=== PATIENT | male | born 1935 | race Caucasian/White ===

== ENCOUNTER → 2016-09-23 | Outpatient (CLI) | payer OTHER, MEDICARE ==
[~2016-09-23] VITALS: Ht 172.7 cm; Wt 54.4 kg
[~2016-09-23] MED LIST: ATORVASTATIN CA40 MG PO; BRIMONIDINE TAR1 BOT OP; CARVEDILOL12.5 MG PO; CARVEDILOL25 MG PO; CIPRO250 M1 PO; COLCHICINE0.6 MG PO; COREG12.5 MG PO; COREG25 MG PO; FLOMAX0.4 MG PO; LISINOPRIL20 MG PO; MELATONIN5 M4 PO; MIRALAX17 GM PO; NORVASC5 MG PO; PANTOPRAZOLE SO40 M1 PO; PLAVIX 75 MG TA75 M1 PO; PRINIVIL20 M1 PO; PROBIOTIC1 EAC1 PO; VANCOCIN 250 M250 M1 PO; XALATAN2.5 ML OPHTHALMIC
--- NOTE | ~2016-09-23 | S ---
[facility] [place] [address] SURGICAL PATH RPT PROCEDURE Name: ADELINA PANG Room #: REG CLI M.R.#: [id number] Admission: 09/23/16 Date of : 39 Discharge: Report #: [id number] Path Case #: [id number] PATHOLOGY REPORT COLLECTION DATE: 09/23/2016 RECEIVED DATE: 09/23/2016 SUBMITTING PHYS: Dr. Santiago Lee OTHER PHYS: Dr. Gabino Lind SPECIMEN(S) RECEIVED: A.Polyp by at 40 cm * * * * * * * * * * * * FINAL DIAGNOSIS: Polyp, at 40 cm, endoscopic biopsy: - Tubular adenoma. - Negative for high grade dysplasia. PATHOLOGIST: Jade Florian M.D. REPORT ELECTRONICALLY SIGNED BY: Jade Florian M.D. DATE/TIME: 09/27/2016 17:39 * * * * * * * * * * * * GROSS PATHOLOGY: Received in formalin labeled "Adelina Pang, polyp biopsy at 40 cm," is a segment of simpson soft tissue measuring 0.5 cm in maximum dimension. The specimen is submitted entirely in cassette A1. (KAH; 09/25/2016) CLINICAL HISTORY: GI bleed, colon polyp, diverticulosis INITIAL CPT CODE(S): A; 73758 Professional services performed by [facility] at [facility] [address] [place] [address] Technical services performed by [facility] at [address] [place] [address], [address], [place] [address]. [facility] [address] [place] [address] SURGICAL PATH RPT PROCEDURE Name: ADELINA PANG Room #: REG CLJamey Diaz#: [id number] Admission: 09/23/16 Date of : 39 Discharge: Report #: [id number] Path Case #: [id number] [place] [address] PHONE: [phone] DIRECTOR: Martinez Gomez M.D. * * * END OF REPORT * * *
--- NOTE | ~2016-09-23 | P ---
[facility] [place] [address] PROCEDURE REPORT Name: ADELINA PANG [facility] [id number] Admission: 09/23/16 Attend Phys: Santiago Lee MD Discharge: Date of : 37 Report #: [id number] THIS REPORT FOR: //name// CC: Gabino Lind MD [facility] Santiago Lee BRIEF HISTORY: The patient is a 81-year-old male who recently had melanotic stools and has not had a previous colonoscopy. PREOPERATIVE DIAGNOSIS: Melena. POSTOPERATIVE DIAGNOSES: 1. Diminutive polyp at 40 cm. 2. Mild sigmoid diverticulosis coli. MEDICATIONS: Deep sedation with propofol per anesthesia. SPECIMEN: Polyp at 40 cm. ESTIMATED BLOOD LOSS: 3 mL. PROCEDURE: Colonoscopy to cecum and terminal ileum with biopsy. FINDINGS: Prior to propofol sedation, procedure of colonoscopy discussed with the patient as well as potential risks, benefits, and complications. He indicates he understands and desires to proceed. With the patient in left lateral decubitus position, digital examination was completed, which revealed no abnormalities. Subsequently, the [employer] video colonoscope was introduced into the rectum, advanced under direct vision to the cecum. Done with minimal difficulty. Cecum was identified by the ileocecal valve and the appendiceal orifice. I was able to advance the scope right to the mouth of the ileocecal valve, but could not cross the ileocecal valve due to looping of the scope. At that point, the scope was slowly withdrawn and careful circumferential views were obtained including retroflexing the scope in the ascending colon. Upon slow withdrawal of the scope, the prep was excellent. The mucosa was within normal limits, normal vascular pattern, normal light reflex. As we withdrew the scope, the prep was noted to be good. The mucosa was within normal limits, normal vascular pattern, normal light reflex. No bleeding lesions were seen during this examination. No abnormalities were noted until the sigmoid colon was reached and at 40 cm, a diminutive polyp was seen and removed by biopsy. The scope was further withdrawn. He was noted have mild diverticular disease without endoscopic evidence of diverticulitis. Scope was withdrawn in the rectum. Upon retroflexion, no abnormalities were seen. Scope was withdrawn. The patient tolerated the procedure well. [address] [address] PROCEDURE REPORT Name: ADELINA PANG Room #: [facility].#: [id number] Admission: 09/23/16 Attend Phys: Santiago Lee MD Discharge: Date of : 37 Report #: [id number] CONDITION OF THE PATIENT UPON DISCHARGE: Following procedure, the patient drowsy, aroused, conversant and will be discharged home when fully ambulatory. INSTRUCTIONS TO THE PATIENT AND FAMILY AT THE TIME OF DISCHARGE: The patient was here several months ago and had inadequate prep. Prep was actually quite good today. We will follow up on the path report. However, at this point in life, the patient is not likely to benefit from continued routine endoscopic evaluation of his colon. As far as the melena, please see upper endoscopy report as he did have an ulcer. At this point in time, I do not see the need for further intervention or further evaluation. I believe this is the patient's first colonoscopy. Withdrawal time from the cecum was 10 minutes. By: 1129 [id number] Santiago Lee MD /nt
--- NOTE | ~2016-09-23 | P ---
[facility] [place] [address] PROCEDURE REPORT Name: ADELINA PANG Room #: REG [facility].#: [id number] Admission: 09/23/16 Attend Phys: Santiago Lee MD Discharge: Date of : 37 Report #: [id number] THIS REPORT FOR: //name// CC: Gabino Lind MD [facility] Santiago Lee OUTPATIENT UPPER ENDOSCOPY REPORT BRIEF HISTORY: The patient is a 81-year-old male who recently had melanotic stools. Several months ago, he had an upper endoscopy, which revealed a large pyloric ulcer. He also had significant esophagitis. He has been on pantoprazole and presents today for repeat evaluation. PREOPERATIVE DIAGNOSIS: Pyloric ulcerative esophagitis. POSTOPERATIVE DIAGNOSES: 1. 97% healed pyloric ulcer. 2. Distal esophagitis, significantly improved. 3. Small hiatus hernia. 4. Schatzki ring. 5. Diffuse gastritis. MEDICATIONS: Deep sedation with propofol per anesthesia. SPECIMEN: None. ESTIMATED BLOOD LOSS: 3 mL. PROCEDURE: EGD and Philippe dilation. FINDINGS: Prior to propofol sedation, procedure of upper endoscopy was discussed with the patient as well as potential risks and its complications. He indicates he understands and desires to proceed. DESCRIPTION OF PROCEDURE: With the patient in left lateral decubitus position, the Ene[employer] video endoscope was inserted in the cervical esophagus under direct vision without difficulty. Examination of this organ through its entire length revealed normal esophageal mucosa in the proximal esophagus. As we advanced the esophagus distally, there was noted to be some exudate material. This is much improved over previous endoscopy where he had fairly extensive distal esophagitis. No deep ulcers were seen. There was some exudate. The intervening mucosa was normal. The scope was advanced further and he was noted to have a moderately tight Schatzki ring. He did report that recently he had some pain with swallowing and felt like something hanging up. I wondered if he had a bolus obstruction of the esophagus. The scope passed through the ring into a small hiatus hernia. The mucosal hernia was normal. Scope was advanced [facility] [address] [place] [address] PROCEDURE REPORT Name: ADELINA PANG Room #: REG RUTHANN Diaz#: [id number] Admission: 09/23/16 Attend Phys: Santiago Lee MD Discharge: Date of : 37 Report #: [id number] in the stomach, which was examined on end view as well as retroflexed views. There was a pattern of antral gastritis. It is noted previous biopsies were negative for H. pylori and those were not repeated. On retroflexion, no lesions were seen. Examination of the pylorus revealed deformity. The previously noted ulcer was about 97% heeled. There was a very shallow area of ulcerations with partially any depth whatsoever. This area has a smooth benign appearance. Scope passed easily into the duodenal bulb and down to the second and third portion of duodenum, which were unremarkable. At that point, the scope was slowly withdrawn and careful circumferential views confirmed the above findings. The patient tolerated the procedure well. Subsequently, he was dilated with passage of 50-[place]or[place] Philippe dilator. There was a slight through the ring, but no other resistance was encountered. CONDITION OF THE PATIENT UPON DISCHARGE: Following procedure, the patient drowsy and prepared for colonoscopy. INSTRUCTIONS TO THE PATIENT AND FAMILY AT THE TIME OF DISCHARGE: His ulcer is almost healed. He continues to have significant esophagitis. We will have him continue pantoprazole at this point in time. We will proceed with colonoscopy for further evaluation of his melena. By: 1105 58 Santiago Lee MD /nt
[2016-09-23 10:29] LABS: HEMATOCRIT 36.1 % (42.0-52.0); HEMOGLOBIN 12.2 gm/dL (14.0-18.0); MCH 28.5 pg (26.0-34.0); MCHC 33.8 g/dL (28.0-37.0); MCV 84.2 fL (80.0-100.0); RBC 4.29 mil/uL (4.50-6.00); RDW 18.5 % (10.5-14.5); WBC 9.5 thou/uL (4.0-11.0)
[2016-09-23 10:36] LABS: CALCIUM 7.6 mg/dL (8.5-10.1); CREATININE 1.4 mg/dL (0.7-1.3); POTASSIUM 3.8 mmol/L (3.5-5.1)
== END | disposition home or self-care (01) ==
LOC: GI 09:49
PROVIDERS: Anesthesiology
DX: D12.5 Benign neoplasm of sigmoid colon (principal); K57.30 Diverticulosis of large intestine without perforation or abscess without bleeding; K22.2 Esophageal obstruction; K29.70 Gastritis, unspecified, without bleeding; K44.9 Diaphragmatic hernia without obstruction or gangrene; K20.8 Other esophagitis; D64.9 Anemia, unspecified; K25.9 Gastric ulcer, unspecified as acute or chronic, without hemorrhage or perforation; I10 Essential (primary) hypertension; I25.2 Old myocardial infarction; K21.9 Gastro-esophageal reflux disease without esophagitis; Z95.1 Presence of aortocoronary bypass graft; Z98.42 Cataract extraction status, left eye; Z98.890 Other specified postprocedural states; Z87.891 Personal history of nicotine dependence
CPT/HCPCS: 62110

== ENCOUNTER 2019-06-02 13:12 | Inpatient (IN) | payer OTHER ==
[~2019-06-02] VITALS: Ht 167.6 cm; Wt 56.8 kg
--- NOTE | ~2019-06-02 | HC ---
[facility] [place] [address] CONSULTATION Name: ADELINA PANG Room #: 205-P ADM IN M.R.#: [id number] Admission: 06/02/19 Attend Phys: Brandon Wright MD Discharge: Date of : 37 Report #: [id number] THIS REPORT FOR: //name// CC: Zachery Patton [facility] physician/PCP Gabino Wright REASON FOR CONSULTATION: Acute kidney injury. HISTORY OF PRESENT ILLNESS: An 84-year-old with past medical history of esophageal ulcers and tears. He presented complaining that he has been feeling weak with very reduced oral intake. He has a history of hypertension, CABG. He has suprapubic catheter. He also had significant past medical history of C. diff in the past. He is not aware of any previous kidney problems. The patient presented with the above-mentioned symptoms and was found to be in an acute kidney injury, he was further admitted to be evaluated. Troponin was elevated at 8.96. Cardiology has been involved in his care. Gastrointestinal team has also been consulted. Initiation of IV fluid has resulted in significant improvement in the patient's creatinine down from 3.7 on presentation to 2.8. PAST MEDICAL HISTORY: 1. Chronic kidney disease, baseline creatinine seems to be around 1.5 based on his previous labs from 2017. 2. Coronary artery disease post-CABG. 3. AFib. 4. Remote history of esophageal ulcers. 5. History of C. diff. 6. Suprapubic catheter. 7. GI bleeding. 8. Hypertension. 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 MEDICATIONS: 1. Atorvastatin. 2. Plavix. 3. Carvedilol. 4. Lisinopril. ALLERGIES: None. FAMILY HISTORY: Hypertension. REVIEW OF SYSTEMS: GENERAL: No fever or chills. He had significant weakness. CARDIOVASCULAR: No chest pain or palpitations. PULMONARY: No cough or hemoptysis. [facility] [address] [place] [address] CONSULTATION Name: ADELINA PANG Room #: 205-P [facility].#: [id number] Admission: 06/02/19 Attend Phys: Brandon Wright MD Discharge: Date of : 37 Report #: [id number] GASTROINTESTINAL: Reduced oral intake with nausea. GENITOURINARY: He has suprapubic catheter. MUSCULOSKELETAL: Occasional myalgias and back pain. PHYSICAL EXAMINATION: GENERAL: Alert, oriented. VITAL SIGNS: Blood pressure is 146/60. HEAD AND NECK: He has no jugular venous distention. CHEST: Decreased air entry bilaterally. CARDIOVASCULAR: No rub detected. Midline scar is present. ABDOMEN: Soft, nontender. Suprapubic catheter present. LOWER EXTREMITIES: No edema. LABORATORY DATA: Reviewed. Hemoglobin 7.6. Chemistry from today revealed a sodium of 140, potassium 3.8, BUN of 95, creatinine 2.8. Troponin from yesterday was 8.96. IMPRESSION AND PLAN: 1. Acute kidney injury due to dehydration. 2. Elevated troponins. 3. Dysphagia. 4. History of hypertension. 5. History of coronary artery disease. 6. The patient's acute kidney injury is due to prerenal azotemia with dehydration due to poor oral intake. This has been improving. 7. Continue with the current IV fluid. 8. Avoid nephrotoxins. 9. Watch urine output. 10. His cardiac issues are being evaluated by the primary team and the cardiac team. By: [id number] Jacki Gomez MD /nt
[2019-06-02 13:15] VITALS: BP 129/71
[2019-06-02 14:50] LABS: HEMATOCRIT 38.9 % (42.0-52.0); HEMOGLOBIN 12.4 gm/dL (14.0-18.0); MCH 27.9 pg (26.0-34.0); MCHC 31.8 g/dL (28.0-37.0); MCV 87.6 fL (80.0-100.0); PLATELET COUNT 243 thou/uL (150-400); RBC 4.45 mil/uL (4.50-6.00); RDW 15.4 % (10.5-14.5); WBC 21.7 thou/uL (4.0-11.0)
[2019-06-02 14:54] LABS: CREATININE 3.7 mg/dL (0.7-1.3); POTASSIUM 4.2 mmol/L (3.5-5.1)
[2019-06-02 15:04] LABS: ALBUMIN 3.5 g/dL (3.4-5.0); DIRECT BILIRUBIN 0.1 mg/dL (<0.1-0.2); TOTAL BILIRUBIN 0.4 mg/dL (<0.1-1.0); TOTAL PROTEIN 7.9 g/dL (6.4-8.2)
[2019-06-02 15:05] LABS: TROPONIN-I 2.71 ng/mL (<0.06)
[2019-06-02] MEDS ORDERED: COMBIGAN EYE DR10 ML OPHTHALMIC (15:12)
[2019-06-02 15:14] LABS: ABSOLUTE NEUTROPHILS 18.7 thou/uL (1.4-8.2); ANISOCYTOSIS 2+
[2019-06-02 15:15] LABS: POLYCHROMASIA OCCASIONAL
[2019-06-02] MEDS ORDERED: BENADRYL25 MG PO (15:15)
[2019-06-02 18:18] LABS: URINE BILIRUBIN NEGATIVE (Negative); URINE BLOOD NEGATIVE (Negative); URINE CLARITY CLOUDY; URINE COLOR YELLOW; URINE GLUCOSE-RANDOM* NEGATIVE (Negative); URINE KETONES TRACE (Negative); URINE NITRITE-REFLEX NEGATIVE (Negative); URINE PROTEIN (DIPSTICK) 2+ (Negative); URINE SPECIFIC GRAVITY <= 1.005 (1.005-1.035); URINE UROBILINOGEN 0.2 E.U./dl (0.2-1.0)
[2019-06-02 18:20] LABS: URINE LEUKOCYTES-REFLEX 3+ (Negative)
[2019-06-02 18:21] VITALS: BP 115/70
[2019-06-02 18:32] LABS: SQUAMOUS 0-3 Few /LPF (0-3)
[2019-06-02 18:33] LABS: BACTERIA-REFLEX >30 Many /HPF (None Seen); CASTS None Seen /LPF (None Seen); URINE RBC 0-2 Rare /HPF (0-2); URINE WBC-REFLEX 6-15 Few /HPF (0-5)
[2019-06-02 18:34] LABS: TRIPLE PHOSPHATE CRYSTALS 4-10 Moderate /LPF (None Seen)
[2019-06-02 20:39] VITALS: BP 139/67
[2019-06-02 23:59] VITALS: BP 128/71
[2019-06-03] VITALS (7 sets, daily range): BP systolic 125–155; BP diastolic 69–87
--- NOTE | 2019-06-03 04:41 | NUR ---
ADMITTED FROM ER UNDER 'S CARE. AROUND 2100, NOTED INCAREASED HR. CALLED UNIT ASSISTANT SBA UNDERWRITER FOR AND RECEIVED AN ORDER FOR STAT EKG. EKG REVEALED A.FIB RVR. 5MG IV LOPRESSOR GIVEN AND PT'S HR NOW SUSTAINED UNDER 100BPM. PER KEPT NPO AFTER MD PER . NO S/S ACUTE DISTRESS NOTED OR REPORTED AT THIS TIME. WILL CONT TO MONITOR FOR ANY CHANGES IN CONDITION.
[2019-06-03 04:50] LABS: ABSOLUTE NEUTROPHILS 12.7 thou/uL (1.4-8.2); HEMATOCRIT 36.2 % (42.0-52.0); HEMOGLOBIN 11.4 gm/dL (14.0-18.0); LYMPHOCYTES 6.4 % (24.0-44.0); MCH 27.5 pg (26.0-34.0); MCHC 31.6 g/dL (28.0-37.0); MCV 87.1 fL (80.0-100.0); MONOCYTES 8.2 % (1.0-8.0); PLATELET COUNT 207 thou/uL (150-400); POLYS 85.4 % (36.0-66.0); RBC 4.15 mil/uL (4.50-6.00); RDW 14.9 % (10.5-14.5); WBC 14.9 thou/uL (4.0-11.0)
[2019-06-03 05:12] LABS: CALCIUM 7.6 mg/dL (8.5-10.1); CREATININE 3.4 mg/dL (0.7-1.3); MAGNESIUM 2.5 mg/dL (1.8-2.4); POTASSIUM 3.8 mmol/L (3.5-5.1); TOTAL BILIRUBIN 0.6 mg/dL (<0.1-1.0); TOTAL PROTEIN 6.7 g/dL (6.4-8.2)
[2019-06-03 05:22] LABS: TROPONIN-I 8.96 ng/mL (<0.06)
--- NOTE | 2019-06-03 07:57 | NUR ---
CRITICAL TROPONIN. CALLED [employer]UT[employer] ANALYST FOR . PER METAL CABINET FINISHER, CALL CARDIOLOGY. CALLED CARIDIOLOGY AND SPOKE TO . MD WILL REVIEW AND GIVE ORDER PRN. CARE TRANSFERRED TO INCOMING RN AT THIS TIME.
--- NOTE | 2019-06-03 17:07 | NUR ---
Patient intermittently afib, non-sustatined with rates 170's. This was informed to Hat Model. No new orders at this time. Patient asymptomatic. Blood pressure 129/79 Map 96, heart rate 90. He denies chest pain. He expressed he didn't even move or feel anything. Nurse to continue to monitor patient status.
--- NOTE | 2019-06-03 19:24 | NUR ---
Physician talked with patient with 2 RNs in room today about code status. Patient clearly stated that he does not want chest compressions or to be on a ventilator. He expressed he wants to be a no code blue. This was not changed in the computer. Nurse talked with shift superintendent SKILLED NURSING FACILITY COUNSELOR once it was noted not to be changed in the computer. She expressed to change it in the computer as it was discussed already and she was aware of this conversation.
[2019-06-04 03:44] VITALS: BP 133/65
--- NOTE | 2019-06-04 04:35 | NUR ---
ASSUMED CARE OF PT. AT 2100. NO OVERNIGHT EVENTS. MAINTAINED NPO AFTER MIDNIGHT FOR EGD TODAY. PT. DID NOT SLEEP WELL THROUGHOUT THE NIGHT. ASSESSMENTS CHARTED. CONTINUE TO FOLLOW POC. WILL CONTINUE TO MONITOR.
[2019-06-04 07:45] VITALS: BP 131/64
--- NOTE | 2019-06-04 11:27 | 2DMMODE ---
[address] [address] D/M-MODE ECHOCARDIOGRAM Name: ADELINA PANG Room #: 205-P ADM IN M.R.#: [id number] Admission: 06/02/19 Attend Phys: Brandon Wright MD Discharge: Date of : 37 Report #: [id number] THIS REPORT FOR: //name// APPROVED REPORT Study performed: 06/04/2019 10:29:01 EXAM: Comprehensive 2D, Doppler, and color-flow Echocardiogram Patient Location: Bedside Room #: 205 Status: routine BSA: 1.61 HR: 89 bpm BP: 131/64 mmHg Rhythm: NSR Other Information Study Quality: Good Indications CAD Elevated Troponin Hypertension/HDD 2D Dimensions IVC: 13.00 mm Volumes Left Atrial Volume (Systole) LA ESV Index: 39.00 mL/m2 Tricuspid Valve PA Pressure: 32.00 mmHg Left Ventricle The left ventricle is normal size. There is normal LV segmental wall motion. There is normal left ventricular wall thickness. The left ventricular systolic function is normal. The left ventricular ejection fraction is within the normal range. LVEF is 55-60%. Grade I - abnormal relaxation pattern. Right Ventricle The right ventricle is normal size. The right ventricular systolic function is normal. [address] [address] D/M-MODE ECHOCARDIOGRAM Name: ADELINA PANG Room #: 205-P ADM IN M.R.#: [id number] Admission: 06/02/19 Attend Phys: Brandon Wright MD Discharge: Date of : 37 Report #: [id number] Atria Left atrium is dilated. The right atrium size is normal. Aortic Valve The aortic valve is normal in structure. No aortic regurgitation is present. There is no aortic valvular stenosis. Mitral Valve The mitral valve is normal in structure. Trace to mild mitral regurgitation. No evidence of mitral valve stenosis. Tricuspid Valve The tricuspid valve is normal in structure. There is trace to mild tricuspid regurgitationEstimated PAP 32 mmHg. There is mild pulmonary hypertension. Pulmonic Valve The pulmonary valve is normal in structure. There is no pulmonic valvular regurgitation. Great Vessels The aortic root is normal in size. IVC is normal in size and collapses >50% with inspiration. Pericardium There is no pericardial effusion. <Conclusion> The left ventricle is normal size. LVEF is 55-60%. Grade I - abnormal relaxation pattern. Grade I - abnormal relaxation pattern. The right ventricle is normal size. Left atrium is dilated. The aortic valve is normal in structure. Trace to mild mitral regurgitation. Trace to mild mitral regurgitation. There is trace to mild tricuspid regurgitationEstimated PAP 32 mmHg. There is mild pulmonary hypertension. The aortic root is normal in size. There is no pericardial effusion. <ELECTRONICALLY SIGNED> By: Gabino Lind MD, FAC 06/04/19 1127 1127 Gabino Lind MD, [facility] /INF
[2019-06-04 11:50] VITALS: BP 127/55
[2019-06-04 13:27] LABS: BASOPHILS 0.1 % (0.0-2.0); EOSINOPHILS 0.1 % (0.0-3.0); LYMPHOCYTES 9.4 % (24.0-44.0); MCH 28.2 pg (26.0-34.0); MCHC 32.5 g/dL (28.0-37.0); MCV 86.8 fL (80.0-100.0); MONOCYTES 10.3 % (1.0-8.0); PLATELET COUNT 180 thou/uL (150-400); POLYS 80.1 % (36.0-66.0); RBC 2.65 mil/uL (4.50-6.00); RDW 14.9 % (10.5-14.5); WBC 12.5 thou/uL (4.0-11.0)
[2019-06-04 13:31] LABS: HEMOGLOBIN 7.5 gm/dL (14.0-18.0)
[2019-06-04 13:45] LABS: CALCIUM 8.1 mg/dL (8.5-10.1); CREATININE 2.9 mg/dL (0.7-1.3); POTASSIUM 3.6 mmol/L (3.5-5.1)
[2019-06-04 14:09] LABS: HEMATOCRIT 24.4 % (42.0-52.0); HEMOGLOBIN 7.9 gm/dL (14.0-18.0)
--- NOTE | 2019-06-04 14:50 | EKG ---
[place] [address] [facility] [employer] [place] [address] ELECTROCARDIOGRAM REPORT Name: ADELINA PANG Room #: 205-P ADM IN M.R.#: [id number] Admission: 06/02/19 Attend Phys: Brandon Wright MD Discharge: Date of : 37 Report #: [id number] THIS REPORT FOR: //name// [facility] ED Test Date: 2019-06-02 Test Time: 13:39:08 Pat Name: ADELINA PANG Department: Room: 205 Gender: M Mercury Recoverer: EDWIN : 1935 Requested By: Kemi Bah Order Number: [id number] MD: Sae Rodriguez Measurements Intervals [place] Rate: 76 P: 14 SC: 188 QRS: -47 QRSD: 109 T: 76 QT: 429 QTc: 483 Interpretive Statements Sinus rhythm Incomplete left bundle branch block Probable left ventricular hypertrophy Anterior Q waves, possibly due to LVH Baseline wander in lead(s) V5 Compared to ECG 06/24/2016 07:00:56 Left ventricular hypertrophy now present Q waves now present Electronically Signed On 06-04-2019 14:49:28 PATCH WASHER by Sae Rodriguez [email or web address] <ELECTRONICALLY SIGNED> By: Sae Rodriguez MD 06/04/19 1449 1339 1339 Sae Rodriguez MD /EPI
--- NOTE | 2019-06-04 14:52 | EKG ---
[address] [address] ELECTROCARDIOGRAM REPORT Name: ADELINA PANG Room #: 205-P ADM IN M.R.#: [id number] Admission: 06/02/19 Attend Phys: Brandon Wright MD Discharge: Date of : 37 Report #: [id number] THIS REPORT FOR: //name// [facility] Test Date: 2019-06-03 Test Time: 07:17:59 Pat Name: ADELINA PANG Department: Room: 205 P Gender: M Dinkey Brakeman: MELVIN : 1935 Requested By: Brandon Wright Order Number: [id number] MD: Sae Rodriguez Measurements Intervals [place] Rate: 85 P: -3 MD: 180 QRS: -57 QRSD: 106 T: 97 QT: 399 QTc: 475 Interpretive Statements Sinus rhythm Left anterior fascicular block LVH with secondary repolarization abnormality Anterior Q waves, possibly due to LVH Baseline wander in lead(s) V5 Compared to ECG 06/24/2016 07:00:56 Electronically Signed On 06-04-2019 14:51:50 WINDOW TRIMMER by Sae Rodriguez [email or web address] <ELECTRONICALLY SIGNED> By: Sae Rodriguez MD 06/04/19 1451 6 6 Sae Rodriguez MD /EPI
--- NOTE | 2019-06-04 14:52 | EKG ---
[address] [address] ELECTROCARDIOGRAM REPORT Name: PANGADELINA FRANK Room #: 205-P ADM IN M.R.#: [id number] Admission: 06/02/19 Attend Phys: Brandon Wright MD Discharge: Date of : 37 Report #: [id number] THIS REPORT FOR: //name// [facility] Test Date: 2019-06-02 Test Time: 21:37:36 Pat Name: ADELINA PANG Department: Room: 205 P Gender: M Real Estate Accountant: . : 1935 Requested By: Brandon Wright Order Number: [id number] MD: Sae Rodriguez Measurements Intervals [place] Rate: 166 P: TN: QRS: -58 QRSD: 105 T: 131 QT: 306 QTc: 509 Interpretive Statements Atrial fibrillation with rapid V-rate Left anterior fascicular block Abnormal R-wave progression, late transition LVH with secondary repolarization abnormality Baseline wander in lead(s) V5 Compared to ECG 06/24/2016 07:00:56 Electronically Signed On 06-04-2019 14:51:30 ASSISTANT AT SURGERY by Sae Rodriguez [email or web address] <ELECTRONICALLY SIGNED> By: Sae Rodriguez MD 06/04/19 1451 36 36 Sae Rodriguez MD /EPI
[2019-06-04 15:35] VITALS: BP 142/71
--- NOTE | 2019-06-04 16:07 | NUR ---
Met with patient who is A/Ox4 admits with
--- NOTE | 2019-06-04 16:10 | NUR ---
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 He lives in ranch style home with all needs on one level. he uses a walker for ambulation. He reports cooks own meals. He has walkin shower with a seat. No hand held shower head. he reports hx of cdiff and rec rehab at [facility]. If he needs rehab again he is agreeable to [facility]. reports nephew supportive and drives for apts. He has no PCP but Dr Lind acts as PCP. therapy evals in process casemgt following.
[2019-06-04 18:17] LABS: HEMATOCRIT 23.5 % (42.0-52.0); HEMOGLOBIN 7.6 gm/dL (14.0-18.0); MCHC 32.1 g/dL (28.0-37.0); MCV 87.2 fL (80.0-100.0); RBC 2.7 mil/uL (4.50-6.00); RDW 14.9 % (10.5-14.5)
[2019-06-04 19:55] VITALS: BP 134/58
[2019-06-05 00:42] LABS: HEMOGLOBIN 7.1 gm/dL (14.0-18.0); MCH 27.9 pg (26.0-34.0); MCHC 32.1 g/dL (28.0-37.0); MCV 86.9 fL (80.0-100.0); RBC 2.53 mil/uL (4.50-6.00); RDW 15.1 % (10.5-14.5); WBC 11.3 thou/uL (4.0-11.0)
--- NOTE | 2019-06-05 04:23 | NUR ---
ASSUMED PT CARE AT 1900, PT IS ALERT AND ORIENTEDX4, DENIES CHEST PAIN OR SOB, DENIES NAUSEA AND VOMITING, ASSESSMENTS CHARTED, SR/AVB ON THE MONITOR, NPO AFTER MIDNIGHT FOR EGD IN THE AM, CONTINUOUS ON ABT WITH NO ADVERSE REACTIONA NOTED, RESTED WELL THROUGH THE NIGHT WILL CONTINUE TO MONITOR
[2019-06-05 04:36] LABS: ALBUMIN 2.3 g/dL (3.4-5.0); CALCIUM 8.1 mg/dL (8.5-10.1); CREATININE 2.8 mg/dL (0.7-1.3); PHOSPHORUS 2.5 mg/dL (2.5-4.9); POTASSIUM 3.8 mmol/L (3.5-5.1)
[2019-06-05 05:02] VITALS: BP 146/60
[2019-06-05 07:41] LABS: HEMATOCRIT 23.5 % (42.0-52.0); HEMOGLOBIN 7.6 gm/dL (14.0-18.0)
[2019-06-05 08:11] VITALS: BP 149/77
--- NOTE | 2019-06-05 10:04 | NUR ---
AAOX4. CALM, COOPERATIVE. HOARSE VOICE. SR PER TELE. NPO SINCE MIDNIGHT FOR EGD THIS A.M. WILL CONTINUE TO FOLLOW CLOSELY.
[2019-06-05 15:35] VITALS: BP 159/81
--- NOTE | 2019-06-05 16:48 | NUR ---
Spoke with nephew discussed post acute care referral to [facility] for skilled care.
[2019-06-05 19:45] VITALS: BP 142/78
[2019-06-06 03:56] VITALS: BP 140/66
--- NOTE | 2019-06-06 04:35 | NUR ---
ASSUMED PT CARE AT 1900, PT ALERT AND ORIENNTEDX4, DENIES CHEST PAIN, NAUSEA AND VOMITING, NG TUBE IN PLACE WITH SUNCTION IN PLACE, SUCTION PATENT, PT REMAINED NPO, REMAINED SINUS ON THE MONITOR WITH 1 DEGREE AVB, REMAINS INCONTINENT OF BOWEL, CATHETER IN PLACE DRAINING YELLOW CLEAR URINE, RESTED WELL THROUGH THE NIGHT, WILL CONTINUE TO MONITOR
[2019-06-06 05:41] LABS: ALBUMIN 2.2 g/dL (3.4-5.0); CALCIUM 7.9 mg/dL (8.5-10.1); CREATININE 2.6 mg/dL (0.7-1.3); PHOSPHORUS 3.2 mg/dL (2.5-4.9); POTASSIUM 3.4 mmol/L (3.5-5.1)
[2019-06-06 07:55] VITALS: BP 145/79
--- NOTE | 2019-06-06 10:57 | HC ---
[facility] [place] [address] CONSULTATION Name: ADELINA PANG Room #: 205-P ADM IN M.R.#: [id number] Admission: 06/02/19 Attend Phys: Brandon Wright MD Discharge: Date of : 37 Report #: [id number] THIS REPORT FOR: //name// CC: Zachery Patton [facility] physician/PCP Gabino Wright GI CONSULT HISTORY OF PRESENT ILLNESS: The patient is a very pleasant 84-year-old male who I have been asked to see for further evaluation of acute onset of GI symptoms on with nausea, vomiting, which was persistent for several hours followed by odynophagia and a sore throat. His medical history is well detailed. He denies any dysphagia. He has been hoarse and soft spoken since his admission. He does have a medical history notable for erosive esophagitis and was taken off of his PPIs approximately 6 months ago. MEDICAL HISTORY: Notable for renal failure, anemia, dehydration, dysphagia, gastric ulcer and prior GI bleed. MEDICATIONS: Include Flomax, pantoprazole, Lipitor, Benadryl, Plavix, Coreg, Zestril, Xalatan eyedrops, probiotic. 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 diff and BPH. FAMILY HISTORY: Noncontributory. REVIEW OF SYSTEMS: Negative for weight loss, weakness or fatigue. He denies head, eyes, ears, nose or throat complaints. Denies chest pain, chest palpitation, chest pressure, cough, shortness of breath, wheezing, genitourinary, musculoskeletal or neuropsychiatric complaints otherwise. PHYSICAL EXAMINATION: VITAL SIGNS: Stable, afebrile. HEENT: Hoarse without evidence of lymphadenopathy. CARDIOVASCULAR: Regular. ABDOMEN: Soft, long, nondistended. No stigmata of chronic liver disease. No abnormal masses or bruits. EXTREMITIES: Not examined. NEUROLOGIC: Not performed. RECTAL: Deferred. PERTINENT LABORATORY DATA: Hemoglobin 12.4, white count 21.7. Serum chemistry; [address] [address] CONSULTATION Name: ADELINA PANG Room #: 205-P [facility] IN M.R.#: [id number] Admission: 06/02/19 Attend Phys: Brandon Wright MD Discharge: Date of : 37 Report #: [id number] her platelet count 243. Serum chemistry notable for BUN 93, creatinine 3.7, glucose 113. Normal LFTs and amylase and lipase. Influenza negative. UA negative. Chest x-ray reveals no acute abnormalities. ASSESSMENT: In summary, the patient presents with nausea, vomiting as well as odynophagia and hoarseness. This may be a manifestation of acute viral illness. He has had a history of erosive esophagitis and peptic ulcer disease. We will proceed with upper endoscopy tomorrow to exclude significant complicated erosive esophagitis as he has had in the past. I have recommended IV PPI therapy in the meantime. We appreciate the opportunity to participate in the care of this nice man. <ELECTRONICALLY SIGNED> By: Brennon Pena MD 06/06/19 1057 1222 1938 Silas Silver MD /nt
[2019-06-06 11:17] VITALS: BP 116/54
--- NOTE | 2019-06-06 15:57 | NUR ---
Planning post acute care at [facility] at this time bed avail Tuesday for patient is stable updated nephew Tom. Matias following
[2019-06-06 16:50] VITALS: BP 157/63
[2019-06-06 17:52] LABS: HEMATOCRIT 23.4 % (42.0-52.0); HEMOGLOBIN 7.7 gm/dL (14.0-18.0); MCH 29.2 pg (26.0-34.0); MCV 88.3 fL (80.0-100.0); RBC 2.65 mil/uL (4.50-6.00); WBC 11.9 thou/uL (4.0-11.0)
--- NOTE | 2019-06-06 18:05 | NUR ---
ASSUMED CARE OF PT AT SHIFT CHANGE. ASSESSMENTS CHARTED. MEDS GIVEN PER JUL. VSS. PT A&OX4. NO C/O PAIN OR SOA. PT INCONTINENT OF BOWEL, STOOLS ARE THICK, SOFT AND BLACK. CATHETER REMAINS IN PLACE. NG TUBE IN PLACE ALL DAY, CLAMPED AT APPROX 1730 AND CLEAR LIQUID DIET ORDERED AND BEING TOLERATED WELL. ORDERED NG TUBE TO BE PULLED. WILL CONTINUE TO MONITOR AND FOLLOW POC.
[2019-06-06 20:00] VITALS: BP 122/66
[2019-06-07] VITALS (7 sets, daily range): BP systolic 85–125; BP diastolic 52–69
[2019-06-07 05:18] LABS: HEMOGLOBIN 6.5 gm/dL (14.0-18.0)
[2019-06-07 05:20] LABS: MCHC 33.2 g/dL (28.0-37.0); MCV 87.4 fL (80.0-100.0); RBC 2.25 mil/uL (4.50-6.00); RDW 15.1 % (10.5-14.5); WBC 9.2 thou/uL (4.0-11.0)
[2019-06-07 05:32] LABS: HEMATOCRIT 19.6 % (42.0-52.0)
[2019-06-07 05:43] LABS: ALBUMIN 1.9 g/dL (3.4-5.0); CALCIUM 7.4 mg/dL (8.5-10.1); CREATININE 2.2 mg/dL (0.7-1.3); POTASSIUM 3.7 mmol/L (3.5-5.1)
--- NOTE | 2019-06-07 07:00 | NUR ---
PT TOLERATING FULL LIQUID DIET WELL, DENIES NAUSEA. PT HAD TWO DARK BMs OVERNIGHT. HGB/HCT LOW THIS MORNING. RESULTS CALLED TO Krunal ENAMORADO NP, WHO SAID SHE WOULD PASS THE RESULTS ON TO THE HOSPITALIST, WHO WOULD DECIDE THE ORDERS. LOPRESSOR NOT INDICATED BY BP AND HR, SO DOSE WAS HELD AT BOTH ADMINISTRATION TIMES. WILL CONTINUE TO MONITOR.
--- NOTE | 2019-06-07 08:29 | NUR ---
ASSUMED CARE OF PT APPROX 0715, A&0X4, APPEARS ONLY SLIGHTLY FORGETFUL, SLIGHTLY CHILKAT. LIKES TO TAKE PILLS IN APPLESAUCE, STATES HE'S USUALLY CONTINENT AND IS EMBARASSED ABOUT BEING INCONTINENT OF LOOSE STOOL. WALKS W/WC AND WALKER, STATES HE NEEDS TWO NURSES TO STAND. SEE SEPARATE INTERVENTIONS FOR ASSESSMENTS. DENIES PAIN YET WHEN I LET HIM KNOW PRN TYLENOL/SWISH AND SWALLOW HE AGREED FOR COMFORT. ENCOURAGED HIM TO USE CALL LIGHT FOR ANY NEEDS. EATING APPLESAUCE CURRENTLY. LET HIM KNOW DIET COULD BE ADVANCED IF HE CONTINUES TO TOLERATE. LOW HBG REPORTED THIS A.M. REFRIGERATION INSULATOR STATES SHE REPORTED TO [place] AGENT. BIG JUMP, IF ACCURATE, FROM RECENT. PT STATES HE DOESN'T FEEL ANY DIFFERENT
--- NOTE | 2019-06-07 13:04 | NUR ---
Pt advancing diet today and getting a unit of blood d/t low hgb. Possible dc to snf tomorrow. [facility] of OP can accept and has a bed for the pt tomorrow. [facility] evaluated and could accept tomorrow as well;however the pt's first choice would be [facility]. All parties updated.
--- NOTE | 2019-06-07 13:11 | PATH ---
[facility] [place] [address] PATHOLOGY RPT PROCEDURE Name: ADELINA PANG Room #: 205-P ADM IN M.R.#: [id number] Admission: 06/02/19 Date of : 37 Discharge: Report #: [id number] Path Case #: [id number] [facility] Accession Number: [id number] . 01 Material submitted: . PART A: stomach - BX OF PYLORIC STENOSIS PART B: esophagus - BX OF ESOPHAGEAL ULCERS . 01 Clinical history: . Nausea, vomiting, hoarseness, GI bleed. . 02 Diagnosis: A. Gastric mucosa, pyloric stenosis, endoscopic biopsy: - Fibrinopurulent material consistent with ulceration. - Gastric mucosal fragments showing mild to moderate reactive gastropathy. - Negative for intestinal metaplasia or atrophy. - No definite Helicobacter pylori organisms identified (properly controlled immunohistochemical stain performed). . B. Squamous mucosa, esophageal ulcers, endoscopic biopsy: - Fibrinopurulent material consistent with ulceration. - Fragments of intact squamous mucosa showing marked acute esophagitis. Please see comment. . (IUV:veronika; 06/06/2019) QMS 06/06/2019 1408 Local . 02 Comment: Examination shows fragments of fibrinopurulent material along with collections of histiocytes as well as intact fragments of squamous epithelium showing acute esophagitis. A properly controlled GMS fungal special stain is performed on block B1 and it shows no intact fungal elements present. Additional properly controlled immunohistochemical stains performed on B1 included AE1/AE3, CD68 and CMV*. The ulcerated fragment shows numerous histiocytes reactive to CD68, and no definite malignant epithelial cells within. This is confirmed by the nonreactive AE1/AE3 immunohistochemical stain amongst the muscular bundles.CMV shows no definite viral inclusions. (IUV:veronika; 06/06/2019) . . *This test was developed and its performance characteristics determined by [facility]. It has not been cleared or approved by the U.S. Food and Drug Administration. The FDA has determined that such clearance or approval is not necessary. This test is used for clinical purposes. It should not be regarded as investigational or for research. This laboratory is certified under the Clinical Laboratory Improvement Amendments of 1988 ([place]) [place] [address] PATHOLOGY RPT PROCEDURE Name: PANGADELINA MARIE Room #: 205-P ADM IN M.R.#: [id number] Admission: 06/02/19 Date of : 37 Discharge: Report #: [id number] Path Case #: [id number] qualified to perform high complexity clinical laboratory testing. . 02 Electronically signed: . Jade Florian MD, Pathologist NPI- [id number] . 01 Gross description: . A. Received in formalin labeled "Adelina PangVIVI of pyloric stenosis" is a 0.7 x 0.4 x 0.1 cm aggregate of simpson-brown mucosa fragments. The specimen is submitted in A1. . B. Received in formalin labeled "Pang AdelinaVIVI of esophageal ulcers" is a 1.2 x 0.5 x 0.1 cm aggregate of simpson-brown mucosa fragments. The specimen is submitted in B1. ([facility]; 06/05/2019) [facility] 06/05/2019 [facility] Local . 02 Pathologist provided ICD-10: K25.9, K31.9, K22.10, K20.9 . 02 CPT . 910233, 205882, H13136, 331361, [id number] Specimen Comment: A courtesy copy of this report has been sent to [phone] Specimen Comment: [phone], Specimen Comment: Report sent to ,DR PRESLEY / DR CRUZ Performed at: [address], [place] [id number] MD Kendall Barnes MD Phone: [phone] Performed at: [address] [id number] MD Jade Florian MD Phone: [phone]
--- NOTE | 2019-06-07 13:30 | NUR ---
PATIENT SEEN THIS DATE BY AMBER KRAUS NP WITH DR. BAEZA. PATIENT IS A CANDIDATE FOR ACUTE REHAB, BUT PATIENT'S PREFERENCE IS TO GO TO [facility]. SPOKE WITH [employer] MANAGER AND PLAN IS FOR PATIENT TO GO TO [facility]. SOCAIL WORKER TO NOTIFY LIAISON IF PLAN CHANGES. THANK YOU FOR THIS REFERRAL
[2019-06-07 15:09] LABS: HEMOGLOBIN 6.6 gm/dL (14.0-18.0)
[2019-06-07 15:10] LABS: HEMATOCRIT 20.4 % (42.0-52.0)
--- NOTE | 2019-06-07 16:10 | NUR ---
Nutrition: pt with throat pain, N/V related to pyloric stenosis, S/P dilation. Also with gastric ulcer. Received consult to provide info on full liquid diet needed x 2 weeks per GI however GI has since advanced diet to soft, fiber restricted. Tolerated lunch. Plan dilation again in 2 weeks outpatient. Pt is agreeable to Ensure enlive BID. Encouraged 2-3/day for weight gain in addition to meals if dysphagia persists. Pt drinks at home. Has had wt loss from 180# over the past several years but reports stabilized recently. Likely D/C to rehab soon.
[2019-06-07 18:18] LABS: HEMATOCRIT 23.7 % (42.0-52.0); HEMOGLOBIN 7.8 gm/dL (14.0-18.0); MCH 28.8 pg (26.0-34.0); MCHC 32.8 g/dL (28.0-37.0); RBC 2.69 mil/uL (4.50-6.00); RDW 15.3 % (10.5-14.5); WBC 9.8 thou/uL (4.0-11.0)
--- NOTE | 2019-06-07 18:34 | NUR ---
IV TEAM CALLED PT'S IV WAS NO LONGER PATENT AFTER BLOOD TRANSFUSION. IV TEAM CALLED FROM ICU SAID IT WOULD BE AWHILE BUT SHE WOULD HEAD OVER. PT'S IN GOOD SPIRITS, CLEANED UP, AND HAS INCREASED HYDRATION
[2019-06-08 04:45] VITALS: BP 111/48
[2019-06-08 05:15] LABS: HEMATOCRIT 22.2 % (42.0-52.0); HEMOGLOBIN 7.4 gm/dL (14.0-18.0)
--- NOTE | 2019-06-08 05:28 | NUR ---
ASSUMED PT CARE AT AROUND 1900, PT IS ALERT AND ORIENTEDX4, SR/ST ON THE MONITOR, DENIES CHEST PAIN, DENIES SOB, ASSESSMENTS CHARTED, VS STABLE, SUPRAPUBIC CATHETER IN PLACE DRAINING WITHOUT PROBLEM, RESTED WELL WILL CONTINUE TO MONITOR
[2019-06-08 05:35] LABS: ALBUMIN 1.9 g/dL (3.4-5.0); CALCIUM 7.3 mg/dL (8.5-10.1); PHOSPHORUS 1.9 mg/dL (2.5-4.9); POTASSIUM 3.8 mmol/L (3.5-5.1)
[2019-06-08 08:16] VITALS: BP 112/52
--- NOTE | 2019-06-08 09:49 | NUR ---
FAXED CLINICAL UPDATE TO [facility], [facility] OF OP SPOKE WITH SYLVAIN IN ADM SHE RECEIVED UPDATE AND POSS DC TODAY.
[2019-06-08 11:47] VITALS: BP 98/52
--- NOTE | 2019-06-08 12:00 | NUR ---
[facility] of OP SNF updated. Dc anticipated tomorrow if renal status improved. They are holding a bed for him. Weekend staff to contact their liason Opal at [phone] to coordinate transport and dc arrangements. They will need a chart copy sent and orders faxed to [phone]. Pt is aware and agreeable.
[2019-06-08 17:05] VITALS: BP 112/56
--- NOTE | 2019-06-08 17:40 | P ---
[facility] [place] [address] PROCEDURE REPORT Name: ADELINA PANG Room #: 205-P ADM IN M.R.#: [id number] Admission: 06/02/19 Attend Phys: Brandon Wright MD Discharge: Date of : 37 Report #: [id number] THIS REPORT FOR: //name// CC: Zachery Patton [facility] physician/PCP Gabino Wright INPATIENT UPPER ENDOSCOPY REPORT BRIEF HISTORY: The patient is an 84-year-old male who presented with nausea, vomiting and hoarseness as well as anemia and drop in hemoglobin. He does report coffee-ground emesis. PREOPERATIVE DIAGNOSIS: Coffee-ground emesis and anemia. POSTOPERATIVE DIAGNOSES: 1. 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 2. Large amount of thick blackish liquidy material remain in the stomach. 3. Severe esophagitis involving 3/4 the esophagus. 4. Small benign appearing antral ulcers. MEDICATIONS: Deep sedation with propofol per anesthesia. SPECIMEN: Biopsies of pyloric stenosis. ESTIMATED BLOOD LOSS: 3 mL. PROCEDURE: EGD with balloon dilation of pyloric stenosis and biopsy of stenotic pylorus. FINDINGS: Prior to propofol sedation, procedure of upper endoscopy was discussed with the patient as well potential risks and its complications. He indicates he understands and desires to proceed. DESCRIPTION OF PROCEDURE: With the patient in left lateral decubitus position, the Olympus video endoscope was inserted in the cervical esophagus under direct vision without difficulty. There was noted to be normal appearing esophageal mucosa in the very proximal esophagus; however, even the upper esophagus, he was noted to have diffuse ulceration of the esophagus. Essentially, 80% of the esophagus was also with loss of mucosa. We did have a smooth benign appearance. There was no evidence of bleeding. However, in the distal esophagus, there was liquidy blackish material, which was aspirated away. The scope was advanced into the stomach and a large volume of thick black liquid was encountered. It was very thick it would not suction through the scope very easily. We carefully advanced the scope into the distal stomach and the antrum was seen. The pylorus was identified and was noted to be stenotic. It had a smooth and benign [facility] [address] [place] [address] PROCEDURE REPORT Name: ADELINA PANG Room #: 205-P ADM IN M.R.#: [id number] Admission: 06/02/19 Attend Phys: Brandon Wright MD Discharge: Date of : 37 Report #: [id number] appearance. It was too narrow to allow advancement of the scope. In addition, a 3-4 mm ulcer was seen in the antrum. It had a smooth and benign appearance. We were going to biopsy the ulcer, but blackish liquid material covered it up and we could no longer identify it. We were able to pass a balloon catheter across the pylorus and dilate levels 8, 9 and 10 mm. Following dilation, I was able to pass the scope through the pyloric channel. It had a benign appearance. The duodenal bulb was unremarkable. Postbulbar duodenal sweep was unremarkable. There were noted to be some superficial mucosal tears in the pyloric channel. They were shallow. It was felt best not to attempt further dilation. The scope was withdrawn. Biopsies were taken of the esophagus upon withdrawal. Following dilation, a Marion sump was passed through his right naris into the stomach. Suction was applied and 1500 mL of thick blackish material was obtained. The scope was withdrawn. DISPOSITION: The patient with nausea and vomiting. He has evidence of gastric outlet obstruction. His stomach has been decompressed at this time. I think he should be able to tolerate liquids and hopefully will be able to remove the NG tube later today. He will likely require additional dilation. He also should have a repeat endoscopy in several days, so we can have a complete examination of the stomach. We will place him on a proton pump inhibitor as well. <ELECTRONICALLY SIGNED> By: Santiago Lee MD 06/08/19 1740 1230 191 Santiago Lee MD /nt
--- NOTE | 2019-06-08 17:58 | NUR ---
ASSUMED CARE OF PT AT SHIFT CHANGE. ASSESSMENTS CHARTED. MEDS GIVEN PER JUL. VSS. PT A&OX4. NO C/O PAIN, SOA OR N/V. PT TOLERATING DIET WELL, ALTHOUGH HAS POOR APPETITE. POSSIBLE DC TOMORROW LONG KIDNEYS LABS CONTINUE TO IMPROVE. GOING TO [facility]. SEE CM NOTES FOR NUMBERS FOR TRANSPORT AND DC ARRANGEMENTS. WILL CONTINUE TO MONITOR AND FOLLOW POC.
[2019-06-08 20:30] VITALS: BP 117/60
[2019-06-09 04:45] VITALS: BP 110/57
[2019-06-09 05:25] LABS: ALBUMIN 1.7 g/dL (3.4-5.0); CALCIUM 6.8 mg/dL (8.5-10.1); CREATININE 1.8 mg/dL (0.7-1.3); PHOSPHORUS 1.7 mg/dL (2.5-4.9); POTASSIUM 3.8 mmol/L (3.5-5.1)
[2019-06-09 05:36] LABS: HEMATOCRIT 20.8 % (42.0-52.0); MCHC 33.4 g/dL (28.0-37.0); MCV 86.8 fL (80.0-100.0); RBC 2.4 mil/uL (4.50-6.00); RDW 15.5 % (10.5-14.5); WBC 8.8 thou/uL (4.0-11.0)
--- NOTE | 2019-06-09 06:05 | NUR ---
ASSUME CARE 1900. PT/VITALS STABLE. DENIES PAIN. POOR TOLERANCE TO ACTIVITY. PT HAS POOR APPETITE AND IS INCONTINENT OF STOOL SUPRAPUBIC CATH CARE DONE. ADEQUATE REST NOTED THROUGH THE NIGHT. SR ON THE MONITOR WITH HR CONTROLLED. NO DISTRESS NOTED. NO CONFUSION OR FORGETFULNESS NOTED. NOTED 1 INCONTINENCE OF STOOL. STOOL IS SOFT, UNFORMED, AND BROWN. HGB NOTED AT 7.0 THIS AM. PLAN IS A POSSIBLE DISCHARGE TO REHAB TODAY. WILL CONTINUE TO MONITOR AND FOLLOW WITH POC
[2019-06-09 07:50] VITALS: BP 122/50
[2019-06-09 11:43] VITALS: BP 94/49
[2019-06-09] MEDS ORDERED: PROTONIX40 M2 PO (12:30)
--- NOTE | 2019-06-09 12:58 | NUR ---
RECEIVED PT'S CARE AROUND 0730; PT. ON BED; AXO4; DURING ASSESSMENT NO C/O PAIN; AM MEDICATION GIVEN WITH APPLED SAUCE PER REQUEST; SR ON THE MONITOR; IV FLUIDS RUNNING; NEPHROLOGY NOTIFIED ABOUT D/C ORDERS; OK TO D/C FLUIDS; RECEIVED CALL FROM MAULIK AROUND 0900 TO NOTIFIE IF PT. MIGHT BE D/C TODAY; NO D/C ORDERS ON PLACE; NUMBER RECEIVED; PHYSICIAN ROUNDING ON FLOOR; D/C ORDERS ON PLACE; MAULIK NOTIFIED; TRANSPORT ARRANGE FOR 2PM; PT. NOTIFIED; ASSESMENT CHARGED; WORKING ON D/C ORDERS; POC FOLLOWED;
== END 2019-06-09 14:15 | DRG 871 ==
LOC: ER 13:12 → EROBS 18:14 → 2N 18:14
PROVIDERS: Emergency Medicine; Hospitalist; Internal Medicine Gastroenterology; Nurse Practitioner; Specialist; ADMIT Internal Medicine
PROC: 0D768ZZ Dilation of Stomach, Via Natural or Artificial Opening Endoscopic (ICD-10-PCS; principal; 2019-06-05)
PROC: 0DB58ZX Excision of Esophagus, Via Natural or Artificial Opening Endoscopic, Diagnostic (ICD-10-PCS; principal; 2019-06-05)
PROC: 0DH67UZ Insertion of Feeding Device into Stomach, Via Natural or Artificial Opening (ICD-10-PCS; 2019-06-06)
PROC: 30233N1 Transfusion of Nonautologous Red Blood Cells into Peripheral Vein, Percutaneous Approach (ICD-10-PCS; 2019-06-07)
DX: A41.9 Sepsis, unspecified organism (principal); G92 Toxic encephalopathy; K22.6 Gastro-esophageal laceration-hemorrhage syndrome; K25.4 Chronic or unspecified gastric ulcer with hemorrhage; N17.9 Acute kidney failure, unspecified; K31.1 Adult hypertrophic pyloric stenosis; D62 Acute posthemorrhagic anemia; N39.0 Urinary tract infection, site not specified; K56.7 Ileus, unspecified; R79.89 Other specified abnormal findings of blood chemistry; R13.10 Dysphagia, unspecified; E86.0 Dehydration; Z96.1 Presence of intraocular lens; N40.0 Benign prostatic hyperplasia without lower urinary tract symptoms; R49.0 Dysphonia; E11.22 Type 2 diabetes mellitus with diabetic chronic kidney disease; I12.9 Hypertensive chronic kidney disease with stage 1 through stage 4 chronic kidney disease, or unspecified chronic kidney disease; N18.9 Chronic kidney disease, unspecified; I25.10 Atherosclerotic heart disease of native coronary artery without angina pectoris; R63.4 Abnormal weight loss; G47.00 Insomnia, unspecified; E87.6 Hypokalemia; K25.9 Gastric ulcer, unspecified as acute or chronic, without hemorrhage or perforation; I48.0 Paroxysmal atrial fibrillation; Z95.1 Presence of aortocoronary bypass graft; Z95.5 Presence of coronary angioplasty implant and graft; I25.2 Old myocardial infarction; Z82.49 Family history of ischemic heart disease and other diseases of the circulatory system; Z79.899 Other long term (current) drug therapy; Z98.42 Cataract extraction status, left eye; Z98.41 Cataract extraction status, right eye; Z87.11 Personal history of peptic ulcer disease; Z79.01 Long term (current) use of anticoagulants; Z68.20 Body mass index [BMI] 20.0-20.9, adult; Z93.6 Other artificial openings of urinary tract status
CPT/HCPCS: 10081; 62110; 62900; 70005

== ENCOUNTER → 2019-07-12 | Outpatient (CLI) | payer OTHER, MEDICARE ==
[~2019-07-12] MED LIST changes: +BENADRYL25 MG PO; +COMBIGAN EYE DR10 ML OPHTHALMIC; +DIPHENHIST50 MG PO; +LIPITOR40 MG PO; +PROTONIX40 M2 PO
[2019-07-12 10:13] LABS: HEMATOCRIT 27.8 % (42.0-52.0); MCH 27.6 pg (26.0-34.0); MCHC 32.3 g/dL (28.0-37.0); MCV 85.4 fL (80.0-100.0); RBC 3.26 mil/uL (4.50-6.00); RDW 15.7 % (10.5-14.5); WBC 6.4 thou/uL (4.0-11.0)
--- NOTE | 2019-07-16 11:17 | P ---
[facility] [place] [address] PROCEDURE REPORT Name: ADELINA PANG Room #: REG [facility]#: [id number] Admission: 07/12/19 Attend Phys: Santiago Lee MD Discharge: Date of : 37 Report #: [id number] THIS REPORT FOR: cc: [facility] - No family physician/PCP [facility] - No family physician/PCP Santiago Lee MD ~ CC: [facility] physician/PCP Gabino Lee OUTPATIENT UPPER ENDOSCOPY BRIEF HISTORY: The patient is an 84-year-old male who was admitted to [facility] in May with GI bleeding. He was found to have gastric outlet obstruction with a large volume of black liquid material in the stomach. He was also found to have severe esophagitis. PREOPERATIVE DIAGNOSES: History of gastrointestinal bleed, esophagitis and gastric outlet obstruction. POSTOPERATIVE DIAGNOSES: 1. Pyloric strictures x 2. 2. Ulcerated distal esophageal stricture, benign appearing. 3. Diffuse ulceration to esophagus. 4. Small hiatus hernia. 5. Diffuse gastritis. MEDICATIONS: Deep sedation with propofol per anesthesia. SPECIMENS: 1. Biopsies of pyloric stricture. 2. Biopsies of esophageal stricture. ESTIMATED BLOOD LOSS: 3 mL. PROCEDURES: EGD with dilation of pyloric stricture, dilation of esophageal stricture and biopsy. FINDINGS: Prior to propofol sedation, procedure of upper endoscopy and dilation was reviewed with the patient as well as potential risks and its complications. He indicates he understands and desires to proceed. DESCRIPTION OF PROCEDURE: With the patient in left lateral decubitus position, the Olympus video endoscope was inserted in the cervical esophagus under direct vision without difficulty. Examination of this organ through its entire length revealed scattered ulcerations throughout the esophagus. It is noted that although significant number of ulcers were present, the burden of ulcer disease [facility] [address] [place] [address] PROCEDURE REPORT Name: ADELINA PANG Room #: REG RUTHANN Diaz#: [id number] Admission: 07/12/19 Attend Phys: Santiago Lee MD Discharge: Date of : 37 Report #: [id number] is markedly improved from his hospitalization in May. However, at the GE junction, there was circumferential ulceration with exudate. The GE junction was strictured and the scope would not pass. We dilated with 8, 9 and 10 mm balloons. Following dilation, the scope passed easily. A small hiatus hernia was encountered. Mucosa and hernia was unremarkable. Scope was advanced in the stomach, was examined on end view as well as retroflexed views. There was a small amount of liquid in the stomach. This was minimal. There was clear fluid. There was no evidence of black material, blood or bleeding. There were no solids in the stomach. Upon retroflexion, no mass or lesions were seen. Examination of the distal stomach also revealed gastritis. Previous biopsies were negative for H. pylori. The pylorus was once again strictured. The scope would not pass. We dilated with 8, 9 and 10 mm balloons and the scope was still not passed. We then used 11 and 12 mm balloons, at which point, the scope passed easily. There were actually 2 strictures in series about a centimeter or so apart. One of these may be a duodenal stricture which is not entirely clear. Both strictures were dilated with a balloon. The distal bulb was unremarkable, duodenal sweep down and third portion was unremarkable. At that point, scope was slowly withdrawn and careful circumferential views confirmed the above finding. Biopsies obtained of the pyloric stricture, which had a benign appearance. Biopsies obtained of the esophageal stricture are well. CONDITION OF THE PATIENT UPON DISCHARGE: Following procedure, the patient drowsy, will be discharged home when fully ambulatory. INSTRUCTIONS TO THE PATIENT AND FAMILY AT THE TIME OF DISCHARGE: The patient with esophageal ulcers, esophagitis, esophageal stricture and pyloric stricture. He is currently on pantoprazole. We will have him continue. We will also add sucralfate slurry for his esophageal ulcers. We will have him return in 3-4 weeks for repeat EGD and dilation. In addition, he should use a liquid supplement such as Ensure or Boost Breeze for nutritional support. Also, in view of the fact that he had GI bleed in May, we will obtain a followup hemoglobin. I do not see that he is currently on iron. <ELECTRONICALLY SIGNED> By: Santiago Lee MD 07/16/19 1117 [id number] [id number] Santiago Lee MD /nt
--- NOTE | 2019-07-16 17:09 | PATH ---
[facility] [place] [address] PATHOLOGY RPT PROCEDURE Name: ADELINA PANG Room #: REG CL M.R.#: [id number] Admission: 07/12/19 Date of : 39 Discharge: Report #: [id number] Path Case #: [id number] [facility] Accession Number: [id number] . 01 Material submitted: . PART A: pylorus - BIOPSY OF PYLORIC STRICTURE PART B: esophagus - BIOPSY OF DISTAL ESOPHAGEAL STRICTURE. Modifiers: distal . 01 Clinical history: . Pre-op diagnosis: GI bleed; gastric outlet obstruction Post-op diagnosis: Pyloric stenosis; esophageal stricture; gastritis; esophagitis; hiatus hernia . 02 Diagnosis: A. Gastric mucosa, pyloric stricture, endoscopic biopsy: - Mild reactive gastropathy. - Negative for intestinal metaplasia or atrophy. - Negative for Helicobacter pylori (properly-controlled immunohistochemical stain performed). . B. Gastroesophageal mucosa, distal esophagus stricture, endoscopic biopsy: - Fragments consistent with ulceration. - Gastric fundic-type mucosa with early goblet cell change; negative for dysplasia. - Squamous mucosa showing mild active esophagitis. - Negative for dysplasia or malignancy. . (IUV:mml; 07/16/2019) QLM 07/16/2019 1349 Local . 02 Comment: Part B: Examination shows foci of early goblet cell change without definitive intestinal metaplastic changes. The goblet cell change is noted within the immature squamous metaplasia. A GMSF special stain, *CMV and *HSV1 are performed on block B1 and the results of these will be reported in an addendum to follow. . (IUV:mml; 07/16/2019) . . *This test was developed and its performance characteristics determined by [facility]. It has not been cleared or approved by the [place]. Food and Drug Administration. The FDA has determined that such clearance or approval is not necessary. This test is used for clinical purposes. It should not be regarded as investigational or for research. This laboratory is certified [address] [address] PATHOLOGY RPT PROCEDURE Name: ADELINA APNG Room #: REG CLJamey M.R.#: [id number] Admission: 07/12/19 Date of : 39 Discharge: Report #: [id number] Path Case #: [id number] under the Clinical Laboratory Improvement Amendments of 1988 (CLIA) as qualified to perform high complexity clinical laboratory testing. . 02 Electronically signed: . Jade Florian MD, Pathologist NPI- [id number] . 01 Gross description: . A. The specimen is received in formalin, labeled "Adelina Toscano'Ronny, biopsy of pyloric stricture". Received are three segments of pale simpson soft tissue ranging in size from 0.2 to 0.4 cm in maximum dimensions. The specimen is submitted entirely in cassette A1. . B. The specimen is received in formalin, labeled "Adelina O'Ronny, biopsy of distal esophageal stricture". Received are five segments of pale simpson soft tissue ranging in size from 0.2 to 0.5 cm in maximum dimensions. The specimen is submitted entirely in cassette B1. (CAA; 07/13/2019) QAC/QAC 07/13/2019 1057 Local . 02 Pathologist provided ICD-10: K31.9, K20.9 . 02 CPT . 827634, 774527, [id number] Specimen Comment: A courtesy copy of this report has been sent to [phone] Specimen Comment: Report sent to Performed at: [address] [facility], [place] [id number] MD Kendall Barnes MD Phone: [phone] Performed at: [address] [id number] MD Jade Florian MD Phone: [phone]
== END | disposition home or self-care (01) ==
LOC: GI 06:54
PROVIDERS: Specialist
DX: K31.1 Adult hypertrophic pyloric stenosis (principal); K44.9 Diaphragmatic hernia without obstruction or gangrene; K22.2 Esophageal obstruction; K31.9 Disease of stomach and duodenum, unspecified; K22.10 Ulcer of esophagus without bleeding; K29.70 Gastritis, unspecified, without bleeding; D64.9 Anemia, unspecified; Z98.890 Other specified postprocedural states; Z79.899 Other long term (current) drug therapy; Z87.19 Personal history of other diseases of the digestive system

== ENCOUNTER → 2019-10-12 | Outpatient (CLI) | payer OTHER, MEDICARE | LOC: SJCVCIMAG 07:25 | PROVIDERS: ATTEND Internal Medicine Cardiovascular Disease | DX: I25.810 Atherosclerosis of coronary artery bypass graft(s) without angina pectoris (principal); I10 Essential (primary) hypertension; E78.00 Pure hypercholesterolemia, unspecified; I65.23 Occlusion and stenosis of bilateral carotid arteries; I25.10 Atherosclerotic heart disease of native coronary artery without angina pectoris; E78.5 Hyperlipidemia, unspecified; I73.9 Peripheral vascular disease, unspecified; Z95.1 Presence of aortocoronary bypass graft; Z87.891 Personal history of nicotine dependence; Z79.899 Other long term (current) drug therapy ==

== ENCOUNTER → 2020-07-14 | Outpatient (CLI) | payer OTHER, MEDICARE | LOC: SJCVC 09:43 | PROVIDERS: ATTEND Internal Medicine Cardiovascular Disease | DX: R94.31 Abnormal electrocardiogram [ECG] [EKG] (principal); I25.10 Atherosclerotic heart disease of native coronary artery without angina pectoris; I10 Essential (primary) hypertension; E78.00 Pure hypercholesterolemia, unspecified; I25.5 Ischemic cardiomyopathy; I65.23 Occlusion and stenosis of bilateral carotid arteries; I48.91 Unspecified atrial fibrillation; G61.0 Guillain-Barre syndrome; I25.2 Old myocardial infarction; Z95.1 Presence of aortocoronary bypass graft; Z87.891 Personal history of nicotine dependence; Z72.89 Other problems related to lifestyle; Z79.899 Other long term (current) drug therapy ==

== ENCOUNTER → 2020-10-16 | Outpatient (CLI) | payer OTHER, MEDICARE | LOC: SJCVC 13:53 | PROVIDERS: ATTEND Internal Medicine Cardiovascular Disease | DX: R94.31 Abnormal electrocardiogram [ECG] [EKG] (principal); I11.9 Hypertensive heart disease without heart failure; I44.7 Left bundle-branch block, unspecified; I25.10 Atherosclerotic heart disease of native coronary artery without angina pectoris; I25.5 Ischemic cardiomyopathy; I65.29 Occlusion and stenosis of unspecified carotid artery; E78.00 Pure hypercholesterolemia, unspecified; I48.91 Unspecified atrial fibrillation; I65.23 Occlusion and stenosis of bilateral carotid arteries; M10.9 Gout, unspecified; L66.4 Folliculitis ulerythematosa reticulata; G61.0 Guillain-Barre syndrome; G47.30 Sleep apnea, unspecified; M06.9 Rheumatoid arthritis, unspecified; I73.9 Peripheral vascular disease, unspecified; Z87.891 Personal history of nicotine dependence; Z79.899 Other long term (current) drug therapy ==

== ENCOUNTER → 2021-05-12 | Outpatient (CLI) | payer OTHER, MEDICARE | LOC: SJCVC 10:04 | PROVIDERS: ATTEND Internal Medicine Cardiovascular Disease | DX: R94.31 Abnormal electrocardiogram [ECG] [EKG] (principal); I25.10 Atherosclerotic heart disease of native coronary artery without angina pectoris; I10 Essential (primary) hypertension; E78.00 Pure hypercholesterolemia, unspecified; I25.5 Ischemic cardiomyopathy; I48.91 Unspecified atrial fibrillation; I65.23 Occlusion and stenosis of bilateral carotid arteries; M10.9 Gout, unspecified; E11.9 Type 2 diabetes mellitus without complications; M06.9 Rheumatoid arthritis, unspecified; I73.9 Peripheral vascular disease, unspecified; G47.33 Obstructive sleep apnea (adult) (pediatric); G61.0 Guillain-Barre syndrome; L66.4 Folliculitis ulerythematosa reticulata; Z87.891 Personal history of nicotine dependence; Z72.89 Other problems related to lifestyle; Z79.899 Other long term (current) drug therapy; Z82.49 Family history of ischemic heart disease and other diseases of the circulatory system ==